=== PATIENT | female | born 2005 | race Caucasian/White ===

== ENCOUNTER 2024-01-20 13:31 | Emergency (ER) | payer OTHER, SELFPAY ==
[2024-01-20 13:36] VITALS: BP 126/78
--- NOTE | 2024-01-20 14:16 | ED.GENMED ---
History of Present Illness
<Carli Herrera PA-C - Last Filed: 01/20/24 17:56>
General
Chief Complaint: Musculo-Skeletal Complaint
Source: patient
Exam Limitations: none
Time Seen by Provider: 01/20/24 13:54
Nursing documentation reviewed up to this point in time: agreed with
Travel History
Have you had any contact with someone who has COVID-19?: No
Do you have any symptoms of coronavirus? Fever > 100 degrees, chills, cough, shortness of breath, sore throat, loss of taste or smell, muscle aches, or headache?: No
History of Present Illness
History of Present Illness:
Patient is a 18-year-old female with no significant past medical history presenting for evaluation of neck pain and stiffness. Patient states that when she woke up this morning she noticed pain and stiffness on the left side of her neck/upper back.
She was having difficulty turning her head without significant discomfort. She also endorsed some mild tingling going down her left arm. She states that this does happen somewhat frequently when she will wake up from sleeping with a stiff neck
but this time it seemed worse so she came to the emergency department for evaluation. Patient denies any associated fever, chills, headache, dizziness or back pain. Patient denies any chest pain or shortness of breath. Patient denies any recent
viruses, illnesses or rashes. Patient denies any recent trauma or falls. She did take a dose of Tylenol this morning which did ease discomfort.
Past History
<Carli Herrera PA-C - Last Filed: 01/20/24 17:56>
Past History
ED Past Medical History: None
ED Past Surgical History: None
Social History
Tobacco: Non-smoker
Alcohol: None
Personal: Single
Living: with family
Employment: Student
Review of Systems
<Carli Herrera PA-C - Last Filed: 01/20/24 17:56>
Review of Systems
Allergies reviewed?: Yes
All Other Systems: ROS reviewed and negative except as documented in HPI and ROS
Phy Exam
<Carli Herrera PA-C - Last Filed: 01/20/24 17:56>
Physical Exam
Physical Exam:
Vitals: Patient's vital signs are stable. Afebrile
General: Patient is well appearing, no acute distress.
Skin: Warm and dry, no rashes or lesions
Head: Normocephalic, atraumatic. No evidence of head trauma.
Eyes: Sclera nonicteric. EOMs intact. No nystagmus.
Throat: Protecting airway
Neck: Point tenderness in left upper trapezius. Relatively good range of motion of the neck although discomfort noted with neck flexion and rotation to the right. No cervical spine tenderness or bony tenderness of clavicle or shoulder. no
meningismus. Trachea midline. No midline spinal tenderness
Cardiac: Regular rate and rhythm, no murmurs.
Pulm: Normal respiratory effort, no wheezes, rales, rhonchi heard on exam.
Abdomen: Abdomen soft. No abdominal tenderness.
Extremities: No evidence of cyanosis or edema. Good distal pulses of bilateral upper and lower extremities. Sensation fully intact.
Neuro: AAOx3. CN II-XII intact. No focal neurologic deficits.
Psychiatric: Normal affect.
Scores
<Carli Herrera PA-C - Last Filed: 01/20/24 17:56>
PERC Rule Criteria
Age <50 years: Yes
HR <100 bpm: Yes
Room air oxygen sat >94%: Yes
History of DVT or PE: No
Recent trauma or surgery: No
Hemoptysis: No
Exogenous estrogen: No
Clinical signs suggestive of DVT: No
: No
Considered low risk for PE: Yes
PERC Score: 0
PE can be excluded by PERC: Yes
Course
<Carli Herrera PA-C - Last Filed: 01/20/24 17:56>
Orders/Labs/Results
Orders:
Orders
01/20/24 14:15
Ibuprofen [Motrin] 400 mg PO NOW STA
01/20/24 14:43
Ketorolac [Toradol] 30 mg IM NOW STA
Vital Signs
Initial and Last Documented VS:
Initial Vital Signs
Temp Pulse Resp BP Pulse Ox
98.0 F 71 16 126/78 98
01/20/24 13:36 01/20/24 13:36 01/20/24 13:36 01/20/24 13:36 01/20/24 13:36
Last Documented Vital Signs
Temp Pulse Resp BP Pulse Ox
98.0 F 71 16 126/78 98
01/20/24 13:36 01/20/24 13:36 01/20/24 13:36 01/20/24 13:36 01/20/24 13:36
<Mike Bundy MD - Last Filed: 01/20/24 14:52>
Orders/Labs/Results
Orders:
Orders
01/20/24 14:15
Ibuprofen [Motrin] 400 mg PO NOW STA
01/20/24 14:43
Ketorolac [Toradol] 30 mg IM NOW STA
Vital Signs
Initial and Last Documented VS:
Initial Vital Signs
Temp Pulse Resp BP Pulse Ox
98.0 F 71 16 126/78 98
01/20/24 13:36 01/20/24 13:36 01/20/24 13:36 01/20/24 13:36 01/20/24 13:36
Last Documented Vital Signs
Temp Pulse Resp BP Pulse Ox
98.0 F 71 16 126/78 98
01/20/24 13:36 01/20/24 13:36 01/20/24 13:36 01/20/24 13:36 01/20/24 13:36
<Carli Herrera PA-C - Last Filed: 01/20/24 17:56>
MDM/Problems Addressed
Differential Diagnosis Includes:
Not limited to: Muscular strain, muscular spasm
MDM/Problems Addressed:
18-year-old female presenting with pain and stiffness in left side of neck and upper back after waking from sleep today. History of similar neck strains while sleeping. No chest pain or shortness of breath. No fever, chills, or any other signs of
infection. No rash. Vital signs are stable. Exam as above. She does have point tenderness to the left upper trapezius. No bony tenderness of left shoulder, clavicle or cervical spine. No meningeal signs. She is extremely well-appearing,
nontoxic. Suspect likely muscular spasm of left upper trapezius. No indication for imaging at this time. Will treat with Toradol. Recommend rest, ice/heating pad, NSAIDs and PCP follow-up. Patient comfortable with plan. All questions answered.
Work note provided to patient.
Chronic conditions affecting care:
N/A
Acute Exacerbation and/or Progression of Chronic Illness:
N/A
<Carli Herrera PA-C - Last Filed: 01/20/24 17:56>
*Pulse Oximetry
Patient hypoxic: no
*EKG
Interpreted by ED Provider?: NA
*Car Sealer Interpretation
Rate: Car Sealer- N/A
*Critical Care Note
Total Time (30-74mins, 75-104mins- exclusive of procedures): Not Applicable
ED Attending Note
<Carli Herrera PA-C - Last Filed: 01/20/24 17:56>
-
Portions of this chart may have been created with voice recognition software.� Occasional wrong word or��sound alike� substitutions may have occurred due to the inherent limitations of voice recognition software.
<Mike Bundy MD - Last Filed: 01/20/24 14:52>
ED Attending Note
Patient seen and examined by attending physician: Yes
ED Attending Note:
I have seen and evaluated the patient with a [id number] encounter. I have spoken to the advance practicer provider and involved in the medical history, the physical exam, medical decision making.
Evaluation and management service: agree unless noted differently below.
Results interpretation: agree unless noted differently below.
Focused HPI: 18-year-old female with no chronic medical issues presents to the emergency room for evaluation of pain in her neck and shoulder. Patient reports that she woke up with symptoms this morning�she reports pain in the left side of her neck
and posterior shoulder. She says she has had this before when she wakes up but usually goes away shortly after she wakes up and today it seems to be lingering. She says she is having some pain when she moves her neck and her shoulder. She denies
any dizziness, headache. She denies any weakness or numbness in her extremities. She denies any falls or trauma. She denies any injuries in the preceding few days or overuse. She did take Tylenol and was using a heating pack this morning and she
says it has improved greatly since arrival in the emergency room.
Physical exam: Awake alert and oriented, not in distress. Vital signs are normal. She has point tenderness along the left upper trapezius; no tenderness of the clavicle, humeral head or scapula and she has full active range of motion of the left
shoulder. She is able to fully range her neck although she does have some discomfort on rotation towards the right. She has good pulse in the right upper extremity.
Medical Decision Makin-year-old female presents for evaluation of neck/shoulder pain�she is point tender in the left upper trapezius. She woke up with this plan. It did improve a bit with heat pack and Tylenol. Suspect likely
torticollis/trapezius strain. Treat with Toradol. Advised continued Motrin/Tylenol and heating pack over the next few days. No indication for emergent imaging at this point in time. Provided work note. All questions answered.
Discharge Plan
Departure
Patient Disposition: Home (Routine Discharge)
Date of Disposition: 01/20/24
Time of Disposition: 14:45
Patient with high blood pressure during this ER visit?: No
Condition: Good
Covid-19: Not Applicable
Discharge Problem:
Neck pain on left side
Instructions: Cervical Muscle Strain
Prescriptions:
No Action
No Current Medications
0
Referrals:
Viky Castaneda, DO [Family Provider] - Follow up in 5-7 days
Stand Alone Forms: Return to Work
Activity Restrictions/Additional Instructions:
RETURN TO THE EMERGENCY DEPARTMENT WITH ANY FEVERS, WORSENING IN NECK PAIN/STIFFNESS, SEVERE HEADACHE, CHEST PAIN, SHORTNESS OF BREATH, WORSENING IN CURRENT SYMPTOMS, OR ANY OTHER CONCERNS
-You can continue to take Motrin and/or Tylenol as needed for discomfort. Apply warm compress.
-Follow-up with primary care in 5 to 7 days to ensure symptoms are improving
Interventions
Interventions:
*General Assessment Last Done: 01/20/24 15:00
*ED COVID-19 Vaccine History Last Done: 01/20/24 13:36
*Nursing Disposition Last Done: 01/20/24 15:00
ED-Musculoskeletal Assessment Last Done: 01/20/24 14:00
Discharge Date and Time
Discharge Date/Time: 01/20/24 15:00
Print Language: BENGALI
[2024-01-20] MEDS: TORADOL 30 MG IM (14:54)
== END 2024-01-20 15:00 | disposition home or self-care (01) ==
LOC: EMR 13:31
PROVIDERS: EMERGENCY PHYSICIAN Emergency Medicine; FAMILY PHYSICIAN Family Medicine
DX: M54.2 Cervicalgia (principal); R20.2 Paresthesia of skin; M43.6 Torticollis; M25.512 Pain in left shoulder
CPT/HCPCS: 99284; 96372